=== PATIENT | male | born 1950 | race Caucasian/White ===

== ENCOUNTER 2017-10-23 11:34 | Emergency (ER) | payer MEDICARE, OTHER ==
[~2017-10-23] VITALS: Ht 182.9 cm; Wt 83.9 kg
[~2017-10-23 11:34] MED LIST: Simvastatin20 MG
[2017-10-23 14:36] LABS: BASOPHILS ABSOLUTE AUTO 0.02 K/mm3 (0.00-0.23); BASOPHILS PERCENT AUTO 0 % (0-2); EOSINOPHILS ABSOLUTE AUTO 0.23 K/mm3 (0.00-0.68); EOSINOPHILS PERCENT AUTO 4 % (0-6); Hematocrit 47.2 % (37.0-53.0); Hemoglobin 15.8 g/dL (13.5-17.5); IMMATURE GRAN ABSOLUTE AUTO 0.02 K/mm3 (0.00-0.10); IMMATURE GRAN PERCENT AUTO 0 % (0-1); LYMPHOCYTES ABSOLUTE AUTO 0.51 K/mm3 (0.84-5.20); LYMPHOCYTES PERCENT AUTO 8 % (21-46); MONOCYTES ABSOLUTE AUTO 0.25 K/mm3 (0.16-1.47); MONOCYTES PERCENT AUTO 4 % (4-13); Mean Corpuscular HGB 30.9 pg (26.0-34.0); Mean Corpuscular HGB Conc 33.5 g/dL (31.5-36.5); Mean Corpuscular Volume 92 fL (80-100); Mean Platelet Volume 9.7 fL (9.1-12.4); NEUTROPHILS ABSOLUTE AUTO 5.35 K/mm3 (1.96-9.15); NEUTROPHILS PERCENT AUTO 84 % (41-73); Platelet Count 189 K/mm3 (150-400); RDW Coefficient Variation 11.8 % (11.7-14.2); RDW Standard Deviation 39.9 fL (35.1-46.3); Red Blood Cell Count 5.12 M/mm3 (4.30-5.90); White Blood Cell Count 6.38 K/mm3 (4.00-11.30)
[2017-10-23 15:43] LABS: Alanine Aminotransfer (ALT/SGP 33 U/L (12-78); Albumin, Blood 3.7 g/dL (3.4-5.0); Albumin/Globulin Ratio 0.9 (0.8-1.8); Alk Phos 57 U/L (50-136); Anion Gap 9 mmol/L (6-16); Aspartate Aminotrans (AST/SGOT 20 U/L (12-37); Bilirubin, Total 0.7 mg/dL (0.1-1.0); Blood Urea Nitrogen 17 mg/dL (8-24); Bun/Creatinine Ratio 16.3 (12.0-20.0); CO2, Blood 28 mmol/L (21-32); Calcium, Blood 9.1 mg/dL (8.5-10.1); Chloride, Blood 100 mmol/L (98-108); Creatinine, Blood 1.04 mg/dL (0.60-1.20); Globulin, Blood 4.1 g/dL (2.2-4.0); Glomerular Filtration Rate >60 (60-); Glucose, Blood 99 mg/dL (70-99); Potassium, Blood 3.8 mmol/L (3.5-5.5); Sodium, Blood 137 mmol/L (136-145); Total Protein, Blood 7.8 g/dL (6.4-8.2)
[2017-10-23] MEDS ORDERED: Prednisone50 MG PO (16:12)
== END 2017-10-23 16:29 | disposition home or self-care (01) ==
LOC: ER 11:34
PROVIDERS: Nurse Practitioner Family
DX: R21 Rash and other nonspecific skin eruption (principal); E78.5 Hyperlipidemia, unspecified; Z79.899 Other long term (current) drug therapy
CPT/HCPCS: 36415; 80053; 85025; 85651; 86140; 99283

== ENCOUNTER 2019-04-10 19:50 | Emergency (ER) | payer MEDICARE, OTHER ==
[~2019-04-10] VITALS: Ht 182.9 cm; Wt 81.7 kg
[~2019-04-10 19:50] MED LIST changes: +Prednisone50 MG PO
[2019-04-10] MEDS ORDERED: Keflex500 MG PO (21:40)
== END 2019-04-10 22:02 | disposition home or self-care (01) ==
LOC: ER 19:50
DX: S92.531B Displaced fracture of distal phalanx of right lesser toe(s), initial encounter for open fracture (principal); W22.8XXA Striking against or struck by other objects, initial encounter; Z88.0 Allergy status to penicillin; Z79.899 Other long term (current) drug therapy; E78.00 Pure hypercholesterolemia, unspecified
CPT/HCPCS: 11760; 73630; 90471; 90714; 99283-25

== ENCOUNTER 2024-09-23 22:31 | Emergency (ER) | payer MEDICARE ==
[~2024-09-23] VITALS: Ht 182.9 cm; Wt 81.7 kg
[~2024-09-23 22:31] MED LIST changes: +Keflex500 MG PO
[2024-09-23 22:39] VITALS: BP 125/70
[2024-09-24] MEDS ORDERED: Rabies Immune Globulin 150 IU / ML 2ML Vial IM ONE (00:05)
[2024-09-24] MEDS ORDERED: Rabies Vaccine (Pcec)/Pf 1 mL 2.5 Unit Kit IM ONE (00:05)
[2024-09-24] MEDS ORDERED: Rabies Immune Globulin/Pf 300 Unit/ML 1ML Vial IM ONE (00:45)
== END 2024-09-24 02:05 | disposition home or self-care (01) ==
LOC: ER 22:31
DX: Z29.14 Encounter for prophylactic rabies immune globulin (principal); Z88.0 Allergy status to penicillin
CPT/HCPCS: 90375; 90376; 90471; 96372; 99282

== ENCOUNTER 2024-09-26 16:29 | Emergency (ER) | payer MEDICARE ==
[~2024-09-26] VITALS: Ht 182.9 cm; Wt 81.7 kg
[2024-09-26 16:35] VITALS: BP 129/75
[2024-09-26] MEDS ORDERED: Rabies Vaccine (Pcec)/Pf 1 mL 2.5 Unit Kit IM ONE (16:40)
== END 2024-09-26 17:15 | disposition home or self-care (01) ==
LOC: ER 16:29
DX: Z23 Encounter for immunization (principal); Z20.3 Contact with and (suspected) exposure to rabies
CPT/HCPCS: 90471; 99282

== ENCOUNTER 2024-09-30 16:35 | Emergency (ER) | payer MEDICARE ==
[~2024-09-30] VITALS: Ht 182.9 cm; Wt 81.7 kg
[2024-09-30 16:43] VITALS: BP 137/76
[2024-09-30] MEDS ORDERED: Rabies Vaccine (Pcec)/Pf 1 mL 2.5 Unit Kit IM ONE (16:45)
== END 2024-09-30 17:15 | disposition home or self-care (01) ==
LOC: ER 16:35
DX: Z23 Encounter for immunization (principal); Z88.0 Allergy status to penicillin; E78.5 Hyperlipidemia, unspecified
CPT/HCPCS: 90471; 99281-25

== ENCOUNTER 2024-10-07 15:34 | Emergency (ER) | payer MEDICARE ==
[~2024-10-07] VITALS: Ht 182.9 cm; Wt 81.7 kg
[2024-10-07 16:18] VITALS: BP 123/66
[2024-10-07] MEDS ORDERED: Rabies Vaccine (Pcec)/Pf 1 mL 2.5 Unit Kit IM ONE (16:25)
== END 2024-10-07 16:46 | disposition home or self-care (01) ==
LOC: ER 15:34
DX: Z29.14 Encounter for prophylactic rabies immune globulin (principal)
CPT/HCPCS: 90471; 99281-25